=== PATIENT | male | born 1995 | race Caucasian/White ===

== ENCOUNTER 2016-12-12 21:07 | Emergency (ER) | payer SELFPAY ==
[2016-12-12 21:16] VITALS: BP 124/63
--- NOTE | 2016-12-12 21:32 | EDM.PDOC ---
ED HPI GENERAL MEDICAL PROBLEM - General Chief Complaint: Upper Extremity Injury/Pain Stated Complaint: PAIN/ARMS/NUMBNESS Time Seen by Provider: 12/12/16 21:24 - History of Present Illness INITIAL COMMENTS - FREE TEXT/NARRATIVE: HISTORY AND PHYSICAL: History of present illness: Patient is 21-year-old white male presents with concern of intermittent numbness and discomfort to his hands bilaterally he relates this to work which is physical in nature it is improved when he is not working and aggravated by the activity. No other neurological signs or symptoms no direct trauma or other concern this distribution involves the volar aspect of his hand across all 5 digits semicircular distribution per his description is been no weakness Review of systems: As per history of present illness and below otherwise all systems reviewed and negative. Past medical history: As per history of present illness and as reviewed below otherwise noncontributory. Surgical history: As per history of present illness and as reviewed below otherwise noncontributory. Social history: No reported history of drug or alcohol abuse. Family history: As per history of present illness and as reviewed below otherwise noncontributory. Physical exam: HEENT: Atraumatic, normocephalic, pupils reactive, negative for conjunctival pallor or scleral icterus, mucous membranes moist, throat clear, neck supple, nontender, trachea midline. Lungs: Clear to auscultation, breath sounds equal bilaterally, chest nontender. Heart: S1S2, regular, negative for clicks, rubs, or JVD. Abdomen: Soft, nondistended, nontender. Negative for masses or hepatosplenomegaly. Negative for costovertebral tenderness. Pelvis: Stable nontender. Genitourinary: Deferred. Rectal: Deferred. Extremities: Atraumatic, negative for cords or calf pain. Neurovascular unremarkable. Neuro: Awake, alert, oriented. Cranial nerves II through XII unremarkable. Cerebellum unremarkable. Motor and sensory unremarkable throughout. Exam nonfocal. 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 bilateral extremity Pain Score (Numeric/FACES): 5 - Related Data Allergies Allergy/AdvReac Type Severity Reaction Status Date / Time No Known Allergies Allergy Verified 12/12/16 21:12 Home Meds: Home Meds . [No Known Home Meds] 06/22/17 [History] Past Medical History - Past Health History Medical/Surgical History: Denies Medical/Surgical History HEENT History: Reports: None - Infectious Disease History Infectious Disease History: Reports: Chicken Pox - Past Surgical History HEENT Surgical History: Reports: None Social & Family History - Family History Family Medical History: Noncontributory Neurological: Reports: MS - Tobacco Use Smoking Status *Q: Current Some Day Smoker Years of Tobacco use: 4 Packs/Tins Daily: 0.1 - Recreational Drug Use Recreational Drug Use: No Review of Systems - Review of Systems Review Of Systems: ROS reveals no pertinent complaints other than HPI. ED EXAM, GENERAL - Physical Exam Exam: See Below (See dictation) Course - Vital Signs Last Recorded V/S: Last Vital Signs Temp 36.4 C 12/12/16 21:12 Pulse 89 12/12/16 21:12 Resp 18 12/12/16 21:12 BP 124/63 12/12/16 21:12 Pulse Ox 98 12/12/16 21:12 Departure - Departure Time of Disposition: 21:31 Disposition: Home, Self-Care 01 Condition: Good Clinical Impression: Overuse syndrome, Neuropathy - Discharge Information Forms: ED Department Discharge Additional Instructions: The following information is given to patients seen in the emergency department who are being discharged to home. This information is to outline your options for follow-up care. We provide all patients seen in our emergency department with a follow-up referral. The need for follow-up, as well as the timing and circumstances, are variable depending upon the specifics of your emergency department visit. If you don't have a primary care physician on staff, we will provide you with a referral. We always advise you to contact your personal physician following an emergency department visit to inform them of the circumstance of the visit and for follow-up with them and/or the need for any referrals to a consulting specialist. The emergency department will also refer you to a specialist when appropriate. This referral assures that you have the opportunity for followup care with a specialist. All of these measure are taken in an effort to provide you with optimal care, which includes your followup. Under all circumstances we always encourage you to contact your private physician who remains a resource for coordinating your care. When calling for followup care, please make the office aware that this follow-up is from your recent emergency room visit. If for any reason you are refused follow-up, please contact the [facility] emergency department at and asked to speak to the emergency department charge nurse. [facility] specialty clinic-Plastics [address] [place] [id number] Call to schedule routine appointment above Motrin/Tylenol as directed return as needed as discussed
== END 2016-12-12 22:00 | disposition home or self-care (01) ==
LOC: MW.ED 21:07
DX: M70.842 Other soft tissue disorders related to use, overuse and pressure, left hand (principal); M70.841 Other soft tissue disorders related to use, overuse and pressure, right hand; F17.210 Nicotine dependence, cigarettes, uncomplicated; X50.9XXA Other and unspecified overexertion or strenuous movements or postures, initial encounter; Y93.89 Activity, other specified
CPT/HCPCS: 99282; 99283

== ENCOUNTER 2017-01-18 09:02 | Emergency (ER) | payer SELFPAY ==
--- NOTE | 2017-01-18 09:23 | EDM.PDOC ---
ED HPI GENERAL MEDICAL PROBLEM - General Chief Complaint: Skin Complaint Stated Complaint: RASH BEHIND KNEES Time Seen by Provider: 01/18/17 09:07 Source of Information: Reports: Patient History Limitations: Reports: No Limitations - History of Present Illness INITIAL COMMENTS - FREE TEXT/NARRATIVE: HISTORY AND PHYSICAL: History of present illness: [21-year-old male with no significant past history now presents to the emergency department complaining of rash behind his knees. 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 Over the last several days he is involved a red rash behind both knees. He feels well and has no fevers chills sweats or shaking chills. He has no systemic symptoms or complaints. The areas are mildly irritated but not painful. He does not have a history of eczema or chronic skin condition. Patient has not been seen or treated previously for this condition. Review of systems: As per history of present illness and below otherwise all systems reviewed and negative. Past medical history: As per history of present illness and as reviewed below otherwise noncontributory. Surgical history: As per history of present illness and as reviewed below otherwise noncontributory. Social history: No reported history of drug or alcohol abuse. Family history: As per history of present illness and as reviewed below otherwise noncontributory. Physical exam: Multiple erythematous patches on the skin of the bilateral popliteal fossa areas. No tenderness warmth, fluctuance or crepitus. HEENT: Normocephalic, atraumatic, pupils normal and symmetrical, supple neck, no meningismus, normal color Lungs: Normal and symmetrical chest wall excursion bilateral with no tachypnea or increased work of breathing, grossly normal chest exam Heart: No tachycardia in triage Abdomen: Normal-appearing, nondistended, no visible mass or asymmetry Pelvis: Normal-appearing Genitourinary: Deferred Rectal exam: Deferred Extremities: Atraumatic, normal use and range of motion, no visible evidence of gross neurovascular compromise Neuro: Awake, alert, oriented. Normal and appropriate mental status. Cranial nerves grossly unremarkable. Motor function normal. Nonfocal neurologic exam. Diagnostics: [] Therapeutics: [] Impression: [] Plan: [Healthy patient now with Signs and symptoms consistent with nonspecific contact dermatitis likely from irritation of work pants and popliteal fossa bilaterally.] No evidence of cellulitis and findings local only with no systemic complaints or findings discussed with patient indication for topical steroid as well as by mouth steroids short course. He is aware of the importance of follow-up with primary care doctor. No further workup or treatment indicated at this time. Patient agrees with outpatient follow-up and strict return precautions given Definitive disposition and diagnosis as appropriate pending reevaluation and review of above. - Related Data Allergies Allergy/AdvReac Type Severity Reaction Status Date / Time No Known Allergies Allergy Verified 01/18/17 09:05 Home Meds: Home Meds Prednisone [IMW: predniSONE] 60 mg PO WITHBREAKFAST #5 tab 01/18/17 [Rx] Past Medical History - Past Health History Medical/Surgical History: Denies Medical/Surgical History HEENT History: Reports: None - Infectious Disease History Infectious Disease History: Reports: Chicken Pox - Past Surgical History HEENT Surgical History: Reports: None Social & Family History - Family History Family Medical History: Noncontributory Neurological: Reports: MS - Tobacco Use Smoking Status *Q: Current Every Day Smoker Years of Tobacco use: 2 Packs/Tins Daily: 1 - Recreational Drug Use Recreational Drug Use: No ED ROS GENERAL - Review of Systems Review Of Systems: See Below (History of present illness) ED EXAM, SKIN/RASH Exam: See Below (History of present illness) Course - Vital Signs Last Recorded V/S: Last Vital Signs Temp 36.7 C 01/18/17 09:12 Pulse 81 01/18/17 10:48 Resp 18 01/18/17 10:48 BP 126/64 01/18/17 10:48 Pulse Ox 96 01/18/17 10:48 Departure - Departure Time of Disposition: 10:07 Disposition: Home, Self-Care 01 Condition: Good Clinical Impression: Dermatitis, Rash and other nonspecific skin eruption - Discharge Information Prescriptions: Prednisone [IMW: predniSONE] 60 mg PO WITHBREAKFAST #5 tab Instructions: Contact Dermatitis, [id number]-Faxy, Rash Referrals: PCP,None [Primary Care Provider] - Forms: ED Department Discharge Additional Instructions: It appears that you have a contact dermatitis behind both knees. This means you have skin inflammation and rash in an area of contact with something that has caused irritation of your skin. In this case it appears that your work pants behind your knees have caused this dermatitis. Apply topical steroid cream such as 1% hydrocortisone to the area as needed. Finish by mouth prednisone prescription as directed once a day for 5 days. Follow-up with your Dr. if symptoms do not resolve and return immediately for new severe or worsening symptoms, especially for signs of generalized illness such as fever or vomiting in the setting of worsening rash.
== END 2017-01-18 10:48 | disposition home or self-care (01) ==
LOC: MW.ED 09:02
CPT/HCPCS: 99282